=== PATIENT | female | born 1995 | race Caucasian/White ===

== ENCOUNTER 2017-04-04 08:10 | Day surgery (SDC) | payer OTHER ==
[~2017-04-04 08:10] MED LIST: CEFAZOLIN 2 GM/50 ML (PMX) 50 ML IVPB; D5W-0.45 NACL + KCL 20 MEQ 1,000 ML IV
[2017-04-04] MEDS ORDERED: NEOSTIGMINE 3 MG/3 ML SYRINGE (08:29)
[2017-04-04] MEDS ORDERED: PROPOFOL 20 ML (08:29)
[2017-04-04] MEDS ORDERED: GLYCOPYRROLATE 0.4 MG INJ ×2 (08:29→12:57)
[2017-04-04] MEDS ORDERED: ROCURONIUM 50 MG INJ (08:29)
[2017-04-04] MEDS ORDERED: LIDOCAINE 2% (SDV) 5 ML INJ (08:29)
[2017-04-04] MEDS ORDERED: DEXAMETHASONE 4 MG/ML 1 ML INJ ×2 (08:30→12:41)
[2017-04-04] MEDS ORDERED: FENTAnyl 50 MCG/ML VIAL ×3 (08:30→13:03)
[2017-04-04] MEDS ORDERED: MIDAZOLAM 1 MG/ML 2 ML INJ ×2 (08:30→12:40)
[2017-04-04] MEDS ORDERED: SUCCINYLCHOLINE CHLORIDE 100 MG/5 ML SYG IV ×2 (08:32→12:39)
[2017-04-04] MEDS ORDERED: CLINDAMYCIN 900 MG/D5W (PMX) 50 ML IVPB ×2 (09:00→12:42)
[2017-04-04] MEDS ORDERED: PROPOFOL 40 ML (12:39)
[2017-04-04] MEDS ORDERED: LIDOCAINE 1% (MDV) 20 ML INJ (12:40)
[2017-04-04] MEDS ORDERED: ONDANSETRON 4 MG INJ (12:41)
[2017-04-04] MEDS ORDERED: PHENYLephrine (100 MCG/ML) 5ML SYG (12:41)
[2017-04-04] MEDS ORDERED: ACETAMINOPHEN 1000MG/100ML IV 100 ML (12:45)
[2017-04-04] MEDS: BUPIVACAINE 0.25%/EPI (SDV) 30 ML INJ (13:39)
[2017-04-04] MEDS ORDERED: PROCHLORPERAZINE 10 MG INJ IV (14:30)
[2017-04-04] MEDS ORDERED: ONDANSETRON 4 MG INJ IV (14:30)
[2017-04-04] MEDS ORDERED: BISACODYL 10 MG SUPP PR (14:30)
[2017-04-04] MEDS ORDERED: METOCLOPRAMIDE 10 MG INJ IV (14:30)
[2017-04-04] MEDS ORDERED: HYDROmorphONE (0.2 MG/ML) 10ML SYG IV (14:30)
[2017-04-04] MEDS ORDERED: HYDROCODONE/APAP (5/325) TAB PO ×2 (14:30)
[2017-04-04] MEDS ORDERED: DOCUSATE SODIUM 100 MG CAP PO (14:30)
[2017-04-04] MEDS ORDERED: MEPERIDINE 25 MG INJ IV (14:30)
== END 2017-04-04 16:27 | disposition home or self-care (01) ==
LOC: SDS 08:10
DX: D24.1 Benign neoplasm of right breast (principal)
CPT/HCPCS: 19301; 88307

== ENCOUNTER 2017-04-17 15:30 | Outpatient (CLI) | payer OTHER | END 2017-04-17 15:53 | disposition home or self-care (01) | LOC: HPC 15:30 | DX: D24.1 Benign neoplasm of right breast (principal); Z98.890 Other specified postprocedural states | CPT/HCPCS: Z7500 ==

== ENCOUNTER 2017-08-09 22:41 | Emergency (ER) | payer OTHER ==
[2017-08-10] MEDS: ACETAMINOPHEN 325 MG TAB PO (00:42)
[2017-08-10 00:50] LABS: ADD MAN DIFF? NO
[2017-08-10 00:51] LABS: ADD UMIC NO; UR ASCORBIC ACID NEGATIVE (NEGATIVE); UR BILIRUBIN (Dip) NEGATIVE (NEGATIVE); UR BLOOD (Dip) NEGATIVE (NEGATIVE); UR CLARITY CLEAR (CLEAR); UR COLOR STRAW (YELLOW); UR GLUCOSE (Dip) NEGATIVE (NEGATIVE); UR KETONES (Dip) NEGATIVE (NEGATIVE); UR LEUKOCYTE ESTERASE (Dip) NEGATIVE Leu/ul (NEGATIVE); UR NITRITE (Dip) NEGATIVE (NEGATIVE); UR SPECIFIC GRAVITY (Dip) 1.002 (1.003-1.030); UR TOTAL PROTEIN (Dip) NEGATIVE (NEGATIVE); UR UROBILINOGEN (Dip) 1+ mg/dL (NEGATIVE)
[2017-08-10 00:52] LABS: WHITE BLOOD COUNT 7.5 10^3/ul (4.8-10.8)
[2017-08-10 00:52] LABS: ABNORMAL IP MESSAGE 1; BASOPHILS % 0.1 % (0.0-2.0); HEMATOCRIT 36.7 % (37.0-47.0); HEMOGLOBIN 12.7 g/dl (12.0-16.0); LYMPHOCYTES # 0.5 10^3/ul (0.8-2.9); LYMPHOCYTES % 6.4 % (15.0-51.0); MEAN CORPUSCULAR HEMOGLOBIN 30.1 pg (29.0-33.0); MEAN CORPUSCULAR HGB CONC 34.6 g/dl (32.0-37.0); MEAN PLATELET VOLUME 9.8 fl (7.4-10.4); MONOCYTE # 0.2 10^3/ul (0.3-0.9); NEUTROPHIL # 6.8 10^3/ul (1.6-7.5); NEUTROPHILS % 91.2 % (39.0-77.0); PLATELET COUNT 215 10^3/UL (140-415); RED BLOOD COUNT 4.22 10^6/ul (4.20-5.40); RED CELL DISTRIBUTION WIDTH 12.7 % (11.5-14.5)
[2017-08-10 00:56] LABS: POSITIVE DIFF @See below
[2017-08-10 01:09] LABS: ALANINE AMINOTRANSFERASE 18 IU/L (13-69); ALBUMIN 3.9 g/dl (3.3-4.9); ALBUMIN/GLOBULIN RATIO 1.11; ALKALINE PHOSPHATASE 80 IU/L (42-121); ANION GAP 13 (8-16); ASPARTATE AMINO TRANSFERASE 20 IU/L (15-46); BILIRUBIN,INDIRECT 0.8 mg/dl (0-1.1); BILIRUBIN,TOTAL 0.8 mg/dl (0.2-1.3); BLOOD UREA NITROGEN 6 mg/dl (7-20); CALCIUM 9.1 mg/dl (8.4-10.2); CARBON DIOXIDE 25 mmol/L (21-31); CHLORIDE 102 mmol/L (97-110); CREATININE 0.51 mg/dl (0.44-1.00); GLUCOSE 108 mg/dl (70-220); POTASSIUM 3.9 mmol/L (3.5-5.1); SODIUM 136 mmol/L (135-144); TOTAL PROTEIN 7.4 g/dl (6.1-8.1)
== END 2017-08-10 01:56 | disposition home or self-care (01) ==
LOC: FTE 22:41
DX: O26.892 Other specified pregnancy related conditions, second trimester (principal); R10.2 Pelvic and perineal pain; Z3A.15 15 weeks gestation of pregnancy
CPT/HCPCS: 36415; 76705; 76805; 80053; 81003; 84702; 85025; 86900; 86901; 99285-25

== ENCOUNTER 2017-12-25 11:00 | Outpatient (CLI) | payer OTHER ==
[2017-12-25 12:25] LABS: ADD UMIC YES; UR ASCORBIC ACID NEGATIVE (NEGATIVE); UR BACTERIA FEW /HPF (NONE SEEN); UR BILIRUBIN (Dip) NEGATIVE (NEGATIVE); UR BLOOD (Dip) NEGATIVE (NEGATIVE); UR CLARITY CLOUDY (CLEAR); UR COLOR YELLOW (YELLOW); UR GLUCOSE (Dip) NEGATIVE (NEGATIVE); UR KETONES (Dip) TRACE mg/dL (NEGATIVE); UR LEUKOCYTE ESTERASE (Dip) NEGATIVE Leu/ul (NEGATIVE); UR NITRITE (Dip) NEGATIVE (NEGATIVE); UR RBC 2 /HPF (0-5); UR SPECIFIC GRAVITY (Dip) 1.011 (1.003-1.030); UR SQUAMOUS EPITHELIAL CELL MODERATE /HPF (FEW); UR TOTAL PROTEIN (Dip) NEGATIVE (NEGATIVE); UR UROBILINOGEN (Dip) NEGATIVE (NEGATIVE); UR WBC 1 /HPF (0-5)
[2017-12-25] MEDS ORDERED: DIPHENHYDRAMINE 50 MG INJ IV ×2 (12:30)
[2017-12-25] MEDS ORDERED: HYDROmorphONE 0.5 MG/0.5 ML SYG IV ×2 (12:30)
[2017-12-25] MEDS ORDERED: ONDANSETRON 4 MG INJ IV ×2 (12:30)
[2017-12-25] MEDS ORDERED: KETOROLAC 30 MG INJ IV ×2 (12:30)
[2017-12-25] MEDS ORDERED: METOCLOPRAMIDE 10 MG INJ IV (12:30)
[2017-12-25] MEDS ORDERED: FENTAnyl 50 MCG/ML VIAL IV ×2 (12:30)
[2017-12-25] MEDS ORDERED: NALOXONE (0.4 MG/ML) INJ IV (12:30)
[2017-12-25] MEDS ORDERED: HYDROmorphONE 1 MG/5 ML IV SYRINGE IV ×3 (12:30)
[2017-12-25] MEDS: LACTATED RINGER'S 1,000 ML IV (13:42)
[2017-12-25] MEDS: TERBUTALINE 1 MG/ML INJ SC (13:45)
== END 2017-12-25 15:45 | disposition home or self-care (01) ==
LOC: OBT 11:00 → L-D 11:00 → OBT 15:45
DX: O26.893 Other specified pregnancy related conditions, third trimester (principal); Z3A.34 34 weeks gestation of pregnancy; R10.2 Pelvic and perineal pain
CPT/HCPCS: 36415; 76775; 76815; 76817; 81001; 96360; 96361

== ENCOUNTER 2018-01-20 19:48 | Outpatient (CLI) | payer OTHER ==
[2018-01-20 21:12] LABS: ADD UMIC NO; UR ASCORBIC ACID NEGATIVE (NEGATIVE); UR BACTERIA FEW /HPF (NONE SEEN); UR BILIRUBIN (Dip) NEGATIVE (NEGATIVE); UR BLOOD (Dip) NEGATIVE (NEGATIVE); UR CLARITY SLIGHTLY CLOUDY (CLEAR); UR COLOR YELLOW (YELLOW); UR GLUCOSE (Dip) NEGATIVE (NEGATIVE); UR KETONES (Dip) NEGATIVE (NEGATIVE); UR LEUKOCYTE ESTERASE (Dip) NEGATIVE Leu/ul (NEGATIVE); UR NITRITE (Dip) NEGATIVE (NEGATIVE); UR RBC 0 /HPF (0-5); UR SQUAMOUS EPITHELIAL CELL FEW /HPF (FEW); UR TOTAL PROTEIN (Dip) NEGATIVE (NEGATIVE); UR UROBILINOGEN (Dip) 1+ mg/dL (NEGATIVE); UR WBC 1 /HPF (0-5)
== END 2018-01-21 00:10 | disposition home or self-care (01) ==
LOC: OBT 19:48 → L-D 19:48
DX: O47.1 False labor at or after 37 completed weeks of gestation (principal); Z3A.38 38 weeks gestation of pregnancy
CPT/HCPCS: 76818; 81001; 81003

== ENCOUNTER 2018-01-23 11:57 | Inpatient (IN) | payer OTHER ==
[2018-01-23] MEDS ORDERED: LACTATED RINGER'S 1,000 ML IV (12:34)
[2018-01-23] MEDS: LACTATED RINGER'S 1,000 ML IV* (12:43)
[2018-01-23 12:45] LABS: ADD MAN DIFF? NO
[2018-01-23 12:48] LABS: BASOPHILS % 0.3 % (0.0-2.0); EOSINOPHILS % 0.2 % (0.0-7.0); HEMATOCRIT 38.3 % (37.0-47.0); HEMOGLOBIN 12.7 g/dl (12.0-16.0); LYMPHOCYTES # 1.8 10^3/ul (0.8-2.9); LYMPHOCYTES % 18.8 % (15.0-51.0); MEAN CORPUSCULAR HEMOGLOBIN 29.4 pg (29.0-33.0); MEAN CORPUSCULAR HGB CONC 33.2 g/dl (32.0-37.0); MEAN CORPUSCULAR VOLUME 88.7 fl (82.0-101.0); MEAN PLATELET VOLUME 10.7 fl (7.4-10.4); MONOCYTE # 0.5 10^3/ul (0.3-0.9); MONOCYTES % 4.8 % (0.0-11.0); NEUTROPHIL # 7.4 10^3/ul (1.6-7.5); NEUTROPHILS % 75.1 % (39.0-77.0); PLATELET COUNT 216 10^3/UL (140-415); RED BLOOD COUNT 4.32 10^6/ul (4.20-5.40); RED CELL DISTRIBUTION WIDTH 13.1 % (11.5-14.5)
[2018-01-23 12:48] LABS: WHITE BLOOD COUNT 9.8 10^3/ul (4.8-10.8)
[2018-01-23] MEDS: VANCOMYCIN 1 GM 250 ML IVPB (12:59)
[2018-01-23] MEDS ORDERED: METHYLERGONOVINE 0.2 MG INJ IM ×2 (13:00→17:00)
[2018-01-23] MEDS ORDERED: MISOPROSTOL 200 MCG TAB PR ×2 (13:00→17:00)
[2018-01-23] MEDS ORDERED: VANCOMYCIN 1 GM (PMX) 250 ML IV (13:00)
[2018-01-23] MEDS ORDERED: OXYTOCIN 30 UNITS/LR 500 ML IV ×4 (13:00→17:00)
[2018-01-23] MEDS ORDERED: LIDOCAINE 1% (MPF) 30 ML INJ INJ (13:00)
[2018-01-23] MEDS ORDERED: IBUPROFEN 600 MG TAB PO (13:00)
[2018-01-23] MEDS ORDERED: CARBOPROST 250 MCG INJ IM ×2 (13:00→17:00)
[2018-01-23 13:25] LABS: INR 0.87; PROTIME 11.9 Sec (11.9-14.9); PT RATIO 0.9
[2018-01-23 13:26] LABS: PARTIAL THROMBOPLASTIN TIME 27.5 Sec (23.0-35.0)
[2018-01-23 13:38] LABS: HEPATITIS B SURFACE ANTIGEN NEGATIVE (NEGATIVE)
[2018-01-23] MEDS: BUTORPHANOL 2 MG INJ IV (15:00)
[2018-01-23] MEDS ORDERED: MINERAL OIL LIGHT 10 ML VIAL (16:38)
[2018-01-23] MEDS: OXYTOCIN 30 UNITS/LR 500 ML IV (16:56)
[2018-01-23] MEDS ORDERED: SENNA/DOCUSATE NA (8.6MG/50MG) TAB PO (17:00)
[2018-01-23] MEDS ORDERED: NACL 0.9% 3 ML SYG IV (17:00)
[2018-01-23] MEDS ORDERED: DIPHENHYDRAMINE 25 MG CAP PO (17:00)
[2018-01-23] MEDS ORDERED: DIBUCAINE 1% 30 GM OINT PR (17:00)
[2018-01-23] MEDS ORDERED: ONDANSETRON 4 MG INJ IV (17:00)
[2018-01-23] MEDS ORDERED: OXYCODONE/ASPIRIN (4.88/325) TAB PO ×2 (17:00)
[2018-01-23] MEDS: LIDOCAINE 0.5% (SDV) 50 ML INJ INFIL (17:09)
[2018-01-23] MEDS: IBUPROFEN 600 MG TAB PO ×2 (18:00→23:51)
[2018-01-23] MEDS ORDERED: VANCOMYCIN 750 MG in SOD CHLORIDE 0.9% 150 ML IVPB (21:00)
[2018-01-23 21:52] LABS: RAPID PLASMA REAGIN NONREACTIVE (NR)
[2018-01-23] MEDS: BENZOCAINE 20% 56 ML SPRAY TOP (22:42)
[2018-01-23] MEDS: LANOLIN 7 GM TUBE TOP (22:42)
[2018-01-23] MEDS: WITCH HAZEL/GLYCERIN PAD PR (22:42)
[2018-01-23] MEDS: SENNA/DOCUSATE NA (8.6MG/50MG) TAB PO (22:42)
[2018-01-24] MEDS: IBUPROFEN 600 MG TAB PO ×4 (05:59→23:54)
[2018-01-24 08:07] LABS: ADD MAN DIFF? NO
[2018-01-24 08:11] LABS: WHITE BLOOD COUNT 12.1 10^3/ul (4.8-10.8)
[2018-01-24 08:11] LABS: BASOPHILS % 0.2 % (0.0-2.0); EOSINOPHILS % 0.2 % (0.0-7.0); HEMATOCRIT 33.8 % (37.0-47.0); HEMOGLOBIN 11.3 g/dl (12.0-16.0); LYMPHOCYTES # 2.2 10^3/ul (0.8-2.9); LYMPHOCYTES % 18.3 % (15.0-51.0); MEAN CORPUSCULAR HEMOGLOBIN 29.7 pg (29.0-33.0); MEAN CORPUSCULAR HGB CONC 33.4 g/dl (32.0-37.0); MEAN CORPUSCULAR VOLUME 88.7 fl (82.0-101.0); MEAN PLATELET VOLUME 10.8 fl (7.4-10.4); MONOCYTE # 0.7 10^3/ul (0.3-0.9); MONOCYTES % 5.7 % (0.0-11.0); NEUTROPHIL # 9.1 10^3/ul (1.6-7.5); NEUTROPHILS % 74.9 % (39.0-77.0); PLATELET COUNT 181 10^3/UL (140-415); RED BLOOD COUNT 3.81 10^6/ul (4.20-5.40); RED CELL DISTRIBUTION WIDTH 13.3 % (11.5-14.5)
[2018-01-24] MEDS: SENNA/DOCUSATE NA (8.6MG/50MG) TAB PO ×2 (09:16→21:44)
[2018-01-24] MEDS: LANOLIN 7 GM TUBE TOP (09:16)
[2018-01-25] MEDS: IBUPROFEN 600 MG TAB PO ×2 (05:52→13:29)
[2018-01-25] MEDS: SENNA/DOCUSATE NA (8.6MG/50MG) TAB PO (09:06)
[2018-01-25] MEDS: WITCH HAZEL/GLYCERIN PAD PR (09:07)
[2018-01-25] MEDS: BENZOCAINE 20% 56 ML SPRAY TOP (09:07)
== END 2018-01-25 16:24 | disposition home or self-care (01) | DRG 807 ==
LOC: OBT 11:57 → L-D 11:57 → OBT 12:15 → L-D 12:15 → PP1 18:23
PROVIDERS: Obstetrics & Gynecology
PROC: 10E0XZZ Delivery of Products of Conception, External Approach (ICD-10-PCS; principal; 2018-01-23)
PROC: 0HQ9XZZ Repair Perineum Skin, External Approach (ICD-10-PCS; 2018-01-23)
DX: O69.81X0 Labor and delivery complicated by cord around neck, without compression, not applicable or unspecified (principal); O70.9 Perineal laceration during delivery, unspecified; Z37.0 Single live birth; Z3A.38 38 weeks gestation of pregnancy
CPT/HCPCS: 85025; 85610; 85730; 86592; 86850; 86900; 86901; 87340

== ENCOUNTER 2018-06-01 09:27 | Emergency (ER) | payer OTHER | END 2018-06-01 10:27 | disposition home or self-care (01) | LOC: FTE 09:27 | DX: J06.9 Acute upper respiratory infection, unspecified (principal) | CPT/HCPCS: 99282; Z7502 ==